=== PATIENT | female | born 1945 | race Caucasian/White ===

== ENCOUNTER 2019-04-18 00:09 | Day surgery (SDC) | payer MEDICARE, SELFPAY ==
[2019-04-12 13:46] VITALS: BMI 30.2
[2019-04-18 07:10] VITALS: BP 113/49; PULSE 57; RESP 16; TEMP 36.2; O2SAT 100; BMI 29.5
[2019-04-18] MEDS: LACTATED RINGERS 1,000 ML 150 ML IV CONT (07:21)
--- NOTE | 2019-04-18 07:40 | WPDANESEPPF ---
Anes - Initial Pre Proc Eval Procedure: Operation Date: 04/18/19 08:00 Proposed Procedures p Screening Colonoscopy - Lorenzo Velez DO Date/Time: 04/18/19 07:40 Surgeon: Lorenzo Velez DO Pre Op Diagnosis: neoplasm screening Patient Data Age: 73 Gender: F Height: 1.55 m Weight: 71 kg Last Vital Signs Temp 36.2 C L 04/18/19 07:10 Pulse 57 L 04/18/19 07:10 Resp 16 04/18/19 07:10 BP 113/49 L 04/18/19 07:10 Pulse Ox 100 04/18/19 07:10 Allergies Allergy/AdvReac Type Severity Reaction Status Date / Time NKDA Allergy Unknown Uncoded 04/18/19 07:29 NKFA Allergy Unknown Uncoded 04/18/19 07:29 Home Medications Medication Instructions Recorded Confirmed Type Ca-D3-mag pt-ahds-zgf-tameka-bor 1 tablet PO BID 04/12/19 04/18/19 History [Calcium 600-D3 Plus (mag-zinc)] albuterol sulfate 1 puff INHALATION PRN PRN 04/12/19 04/18/19 History apixaban [Eliquis] 5 mg PO BID 04/12/19 04/18/19 History atorvastatin [Lipitor] 80 mg PO DAILY 04/12/19 04/18/19 History budesonide-formoterol 2 puff INHALATION BID 04/12/19 04/18/19 History celecoxib [Celebrex] 200 mg PO DAILY 04/12/19 04/18/19 History ezetimibe 10 mg PO DAILY 04/12/19 04/18/19 History lisinopril 40 mg PO DAILY 04/12/19 04/12/19 History loratadine 10 mg PO DAILY 04/12/19 04/18/19 History metoprolol succinate 25 mg PO DAILY 04/12/19 04/18/19 History montelukast 10 mg PO HS 04/12/19 04/18/19 History pantoprazole [Protonix] 40 mg PO DAILY 04/12/19 04/18/19 History Patient hx anesthesia problems: none Family hx anesthesia problems: none PMFSH Past Medical History Medical History (Updated 04/17/19 @ 13:45 by Randy Cisse DO) Asthma Atrial fibrillation Colindres esophagus Hyperlipidemia Hypertension Osteoarthritis Surgical History Surgical History (Updated 04/17/19 @ 13:45 by Randy Cisse DO) History of appendectomy Family History Family History (Updated 07/17/17 @ 07:34 by DOCTOR UNKNOWN) Mother Family history of tuberculosis Family history of condition Family history of congestive heart failure Sibling Diabetes mellitus Father Family history of emphysema Social History Social History Smoking status: Never smoker Anes - Eval Final PreProcedure Day of Procedure 04/18/19 07:40 Patient weight: overweight Heart: regular rate and rhythm Lungs: clear to auscultation and normal air movement Airway: Mallampati scale class II Neurological: alert and oriented Last oral intake: >/= 8 hours ASA classification: III Emergent: no Anesthetic plan: proceed Anesthesia type and monitoring: general GIVS and standard monitoring Informed Consent: The patient's anesthetic plan and its attendant risks and benefits were discussed with the patient/family/POA. Questions were solicited and answers provided to the satisfaction of the patient/family/POA.
--- NOTE | 2019-04-18 08:06 | PM.IMHP ---
H&P: HPI History of Present Illness Chief complaint: neoplasm screening Narrative: This Very pleasant lady is seen at the request of her primary physician. The patient was examined. Impression: Screening colonoscopy. Per past medical history. Recommendation: Colonoscopy. History: This very pleasant lady is being evaluated for screening colonoscopy. The patient's GI review systems is negative. She had a colonoscopy back in 2000. No known drug allergies. Past medical history: Hypertension. Hyperlipidemia. Atrial fibrillation. Gastric ulcer reflux disease. Asthma. Past surgical history: Appendectomy. Fair medical history: Mother heart disease. Father prostate cancer. Aunt and grandmother had some type cancer. Grandmother had lymphoma aunt had liver cancer. Social history: Patient denies any smoking, drinking or illicit drug use. Fourteen point review systems unremarkable. Physical examination: General: very pleasant patient in no acute distress. HEENT: Head was normocephalic sclerae is clear mouth without masses neck was supple. Heart: Rate rhythm regular without S3 or S4. Lungs: CTA. Abdomen: Soft with no guarding or rigidity. Bowel sounds were active. Neurologic: Cranial nerves 2 through 12 intact. No focal defects. No clonus. Musculoskeletal system: Revealed no joint tenderness or swelling no muscle atrophy. Extremities: Reveal no significant edema. Skin: Warm and dry with normal turgor. Mental status: intact. Patient is alert and oriented. Thank you for allowing me to participate in the care of this patient. [facility] Past Medical History Medical History (Updated 04/17/19 @ 13:45 by Randy Cisse DO) Asthma Atrial fibrillation Colindres esophagus Hyperlipidemia Hypertension Osteoarthritis Surgical History Surgical History (Updated 04/17/19 @ 13:45 by Randy Cisse DO) History of appendectomy Family History Family History (Updated 07/17/17 @ 07:34 by DOCTOR UNKNOWN) Mother Family history of tuberculosis Family history of condition Family history of congestive heart failure Sibling Diabetes mellitus Father Family history of emphysema Social History Social History Smoking status: Never smoker Meds Home Medications and Allergies Home Medications Medication Instructions Recorded Confirmed Type Ca-D3-mag df-yiaj-bpg-tameka-bor 1 tablet PO BID 04/12/19 04/18/19 History [Calcium 600-D3 Plus (mag-zinc)] albuterol sulfate 1 puff INHALATION PRN PRN 04/12/19 04/18/19 History apixaban [Eliquis] 5 mg PO BID 04/12/19 04/18/19 History atorvastatin [Lipitor] 80 mg PO DAILY 04/12/19 04/18/19 History budesonide-formoterol 2 puff INHALATION BID 04/12/19 04/18/19 History celecoxib [Celebrex] 200 mg PO DAILY 04/12/19 04/18/19 History ezetimibe 10 mg PO DAILY 04/12/19 04/18/19 History lisinopril 40 mg PO DAILY 04/12/19 04/12/19 History loratadine 10 mg PO DAILY 04/12/19 04/18/19 History metoprolol succinate 25 mg PO DAILY 04/12/19 04/18/19 History montelukast 10 mg PO HS 04/12/19 04/18/19 History pantoprazole [Protonix] 40 mg PO DAILY 04/12/19 04/18/19 History Allergies Allergy/AdvReac Type Severity Reaction Status Date / Time NKDA Allergy Unknown Uncoded 04/18/19 07:29 NKFA Allergy Unknown Uncoded 04/18/19 07:29 Vital Signs Vital Signs - 24 hr 04/18/19 07:10 Temperature 36.2 C L Pulse Rate 57 L Respiratory Rate 16 Blood Pressure 113/49 L Pulse Oximetry 100
[2019-04-18 08:38] VITALS: BP 134/56; PULSE 82; RESP 20; O2SAT 100
[2019-04-18 08:48] VITALS: BP 124/58; PULSE 84; RESP 18; O2SAT 100
[2019-04-18 08:58] VITALS: BP 116/82; PULSE 91; RESP 20; O2SAT 100
== END 2019-04-18 09:08 | disposition home or self-care (01) ==
PROVIDERS: PCP Family Medicine Adolescent Medicine; Visit Provider Internal Medicine Gastroenterology
PROC: 0DJD8ZZ Inspection of Lower Intestinal Tract, Via Natural or Artificial Opening Endoscopic (ICD-10-PCS; CPT 45378; principal; 2019-04-18 08:00)
DX: Z12.11 Encounter for screening for malignant neoplasm of colon (principal); D12.2 Benign neoplasm of ascending colon; K57.30 Diverticulosis of large intestine without perforation or abscess without bleeding; K64.8 Other hemorrhoids; I48.91 Unspecified atrial fibrillation; I10 Essential (primary) hypertension; E78.5 Hyperlipidemia, unspecified; J45.909 Unspecified asthma, uncomplicated; M19.90 Unspecified osteoarthritis, unspecified site; Z79.01 Long term (current) use of anticoagulants
CPT/HCPCS: 45380; 88305; J2704; J7120

== ENCOUNTER → 2020-12-15 13:51 | Outpatient (CLI) | payer OTHER, SELFPAY ==
--- NOTE | ~2020-12-15 | US_ITS ---
EXAMINATION: US thyroid EXAM DATE: 12/15/2020 14:12 INDICATION: Thyroid nodules on CT scan. TECHNIQUE: Multiple grayscale and Doppler images of the thyroid were obtained (by a technologist who performed the scan) and subsequently reviewed. Individual nodules and recommendations may be reporte d in accordance with TI-RADS system as designated by the 2017 ACR White Paper TI-RADS committee. The re is no prior study for comparison. FINDINGS: The right thyroid lobe measures 5.3 x 2.0 x 1.8 cm, the left measuring 7.1 x 2.3 x 1.6 cm. These dime nsions are moderately enlarged. There is diffusely heterogeneous thyroid echogenicity making it diffi cult to pick out any focal nodules. Largest right thyroid lobe regions suspected to be nodule measures 2.1 x 1.3 x 1.2 cm, solid (2 point s), hypoechoic (2 points), wider than tall, smooth well defined margin, without echogenic foci, categ ory TR4 for this nodule. Largest left thyroid region which could be a focal nodule measures 2.8 x 2.1 x 2.1, solid (2 points), isoechoic (1 point), wider than tall, smooth well defined margin, without echogenic foci, category T R3 for this nodule. IMPRESSION: Multinodular goiter. Largest right and left thyroid lobe nodules could be considered for ultrasound-guided FNA under current recommendations. Reviewed, dictated and finalized at location A. IMPRESSION: Multinodular goiter. Largest right and left thyroid lobe nodules co uld be considered for ultrasound-guided FNA under current recommendations.
== END ==
PROVIDERS: PCP Family Medicine Adolescent Medicine; Visit Provider Family Medicine Adolescent Medicine
DX: E04.2 Nontoxic multinodular goiter (principal)
CPT/HCPCS: 76536

== ENCOUNTER → 2021-06-22 14:00 | Outpatient (CLI) | payer OTHER, SELFPAY ==
--- NOTE | ~2021-06-22 | US_ITS ---
EXAMINATION: US thyroid DATE: 06/22/2021 14:19 INDICATION: Bilateral thyroid nodules. TECHNIQUE: Multiple ultrasound images of the thyroid were obtained. COMPARISON: Thyroid ultrasound 12/15/2020 FINDINGS: The right thyroid lobe measures 4.4 x 1.2 x 1.6 cm. The left thyroid lobe measures 5.2 x 2.8 x 2.1 c m. The thyroid demonstrates heterogeneous echogenicity. Vascularity is normal. In the right thyroid l obe, there is a 1.1 cm solid, hypoechoic, spauh-vwkj-hvre nodule with ill-defined margin without echo genic foci (TI-RADS TR4). In the right thyroid lobe, there is a 1.1 cm solid, isoechoic, owkwm-svih-k all nodule with ill-defined margin without echogenic foci (TR3). In the left thyroid lobe, there is a 2.2 cm solid, isoechoic, sutzm-rfqp-abze nodule with ill-defined margin without echogenic foci (TR3) , stable from 12/15/20. IMPRESSION: 1. Thyroid nodules. Ultrasound-guided fine-needle aspiration of the 2.2 cm left thyroid nodule is rec ommended. Reviewed, dictated and finalized at location E. IMPRESSION: 1. Thyroid nodules. Ultrasound-guided fine-needle aspiration of the 2.2 cm left thyroid nodule is recommended.
== END ==
PROVIDERS: PCP Family Medicine Adolescent Medicine; Visit Provider Family Medicine Adolescent Medicine
DX: E04.2 Nontoxic multinodular goiter (principal)
CPT/HCPCS: 76536

== ENCOUNTER 2021-08-11 09:10 | Outpatient (CLI) | payer OTHER, SELFPAY ==
--- NOTE | ~2021-08-11 | US_ITS ---
EXAMINATION: US FNA w image guidance DATE: 08/11/2021 09:57 INDICATION: Nontoxic single thyroid nodule TECHNIQUE: A time-out was performed to verify the patient's name, date of , and procedure to be performed . The procedure and its benefits and risks were discussed with the patient. Risks specifically discus sed included bleeding and infection. The patient understood the risks and agreed to proceed. The neck was prepped and draped in the usual sterile manner. 3 mL 1% lidocaine was used for local anesthesia . 6 passes were made with a 25G needle into the lesion. Appropriate needle location was documented with continuous sonographic guidance. A sterile bandage was applied. There were no immediate compli cations. FINDINGS: Grayscale ultrasound images demonstrate biopsy needles advanced into a 3.0 x 2.3 x 1.8 cm solid isoec hoic TI RADS 3 nodule at the inferior left thyroid. An adjacent similar-appearing slightly smaller no dules measuring up to 2.5 cm in maximal diameter is seen at the left-sided thyroid isthmus. IMPRESSION: 1. Successful ultrasound-guided fine needle aspiration of a 3.0 cm TI RADS 3 nodule at the inferior left thyroid. Reviewed, dictated and finalized at location A. IMPRESSION: 1. Successful ultrasound-guided fine needle aspiration of a 3.0 cm TI RADS 3 n odule at the inferior left thyroid.
== END 2021-08-11 09:11 | disposition home or self-care (01) ==
PROVIDERS: PCP Family Medicine Adolescent Medicine; Visit Provider Physician Assistant
DX: E04.1 Nontoxic single thyroid nodule (principal)
CPT/HCPCS: 10005; 88173; 88305